=== PATIENT | male | born 1995 | race Caucasian/White ===

== ENCOUNTER 2016-12-17 14:22 | Emergency (ER) | payer BC, OTHER ==
[2016-12-17] MEDS ORDERED: IBUPROFEN 600 MG TAB PO ONE (14:47)
--- NOTE | 2016-12-17 14:49 | EDPHY ---
H & P Time Seen by Provider: 12/17/16 14:35 HPI/ROS: CHIEF COMPLAINT: Right ankle and leg injury HISTORY OF PRESENT ILLNESS: Patient came off his skateboard 30 minutes prior to arrival planted and twisted his right leg. Complains of pain primarily in the lateral leg and the medial ankle REVIEW OF SYSTEMS: No weakness or numbness in the foot PAST MEDICAL HISTORY: Negative Social history: [employer] student General Appearance: Alert and conversant, cooperative. Superficial 1 cm abrasion over the dorsum of the ankle. No laceration. Normal motor sensory and dorsalis pedis pulse in the foot. No foot tenderness including 5th metatarsal. Medial malleolus tenderness and swelling. Achilles intact nontender. Compartments soft in the lower leg. Right lateral mid leg tenderness. Normal range of motion of the knee. Emergency Department course/MDM: Declined narcotics, oral ibuprofen. X-ray of the right ankle and tib-fib reviewed show posterior malleolus and fibular fracture. Patient has normal range of the motion and absolutely no patellar tenderness, x- ray reviewed of the knee and has lateral patellar abnormality which I believe clinically is most likely old. Long leg Ortho Glass splint, crutches, nonweightbearing, orthopedic referral. X -rays reviewed with the patient. Warned mandatory orthopedic follow-up, potential of ORIF discussed. Procedure: Splint placement. A right long leg posterior Ortho Glass splint was applied. After application of the splint I returned and re-examined the patient. The splint was adequately immobilizing the joint and distal to the splint the patient's circulation and sensation was intact. Smoking Status: Never smoked Constitutional: Initial Vital Signs Temperature (C) 36.4 C 12/17/16 14:26 Heart Rate 86 12/17/16 14:26 Respiratory Rate 16 12/17/16 14:26 Blood Pressure 98/69 L 12/17/16 14:26 O2 Sat (%) 99 12/17/16 14:26 O2 Delivery Mode Room Air Allergies/Adverse Reactions: No Known Allergies Allergy (Unverified 12/17/16 14:25) Home Medications: Medication Instructions Recorded NK [No Known Home Meds] 12/17/16 MDM/Departure - MDM Imaging Results: Imaging Impressions Ankle X-Ray 12/17/16 14:28 Impression: 1. Fracture of "posterior malleolus" of distal tibia. 2. Fracture of midshaft of right fibula. Tibia/Fibula X-Ray 12/17/16 14:48 Impression: Fracture of midshaft of right fibula. Knee X-Ray 12/17/16 14:57 Impression: 1. Multipartite patella. 2. Possible knee effusion. Medications Given: Discontinued Medications Ibuprofen (Motrin) 600 mg PO EDNOW ONE Stop: 12/17/16 14:48 Last Admin: 12/17/16 14:50 Dose: 600 mg - Depart Disposition: Home, Routine, Self-Care Clinical Impression: Fracture of posterior malleolus of right tibia Qualifiers: Encounter type: initial encounter Fracture type: closed Qualified Code(s): S82.391A - Other fracture of lower end of right tibia, initial encounter for closed fracture Closed right fibular fracture Qualifiers: Encounter type: initial encounter Fibula location: shaft Fracture morphology: unspecified fracture morphology Qualified Code(s): S82.401A - Unspecified fracture of shaft of right fibula, initial encounter for closed fracture Condition: Good Instructions: Crutch Instructions (ED), Splint Care (ED) Referrals: [facility],PCP [Other] - As per Instructions Braulio Carlson MD [Medical Doctor] - As per Instructions (Follow-up with this referral orthopedic physician next week for definitive evaluation. No weight- bearing, use crutches.)
[2016-12-17 15:55] VITALS: BP 110/67; PULSE 69; RESP 18; TEMP 98.1; O2SAT 96
== END 2016-12-17 15:59 | disposition home or self-care (01) ==
PROC: 2W3LX1Z Immobilization of Right Lower Extremity using Splint (ICD-10-PCS; principal; 2016-12-17)
DX: S82.391A Other fracture of lower end of right tibia, initial encounter for closed fracture (principal); S82.401A Unspecified fracture of shaft of right fibula, initial encounter for closed fracture; X50.9XXA Other and unspecified overexertion or strenuous movements or postures, initial encounter; Y93.51 Activity, roller skating (inline) and skateboarding